=== PATIENT | male | born 1975 | race African-American/Black ===

== ENCOUNTER 2018-08-15 11:09 | Emergency (ER) | payer SELFPAY ==
[~2018-08-15] VITALS: Ht 180.3 cm; Wt 90.0 kg
[2018-08-15] MEDS ORDERED: TETANUS, DIPHTHERIA, PERTUSSIS VAC/PF 0.5ML (>7YR OLD) IM ONE (11:45)
[2018-08-15] MEDS ORDERED: MIDAZOLAM HCL 2 MG/2 ML VIAL IM ONE (12:00)
[2018-08-15 12:25] LABS: BASOPHILS % 0.6 % (0.0-2.0); EOSINOPHILS % 1.3 % (0.0-5.0); HEMOGLOBIN. 14.8 g/dL (14.0-18.0); LYMPHOCYTES % 9.1 % (20.0-50.0); MEAN CORPUSCULAR HEMOGLOBIN 26.7 pg (28.0-32.0); MEAN CORPUSCULAR VOLUME 79.6 fL (80.0-94.0); MEAN PLATELET VOLUME 8.1 fl (7.4-10.4); MONOCYTES % 11.6 % (2.0-8.0); NEUTROPHILS % 77.4 % (40.0-76.0); PLATELET 246 x1000/uL (130-400); RED BLOOD CELL COUNT 5.53 mill/uL (4.7-6.1); RED CELL DISTRIBUTION WIDTH 14.4 % (11.6-14.6)
[2018-08-15 12:32] LABS: CHLORIDE 101 mEq/L (98-107)
[2018-08-15 12:39] LABS: ETHANOL BLOOD < 10 mg/dL
[2018-08-15] MEDS ORDERED: CEFAZOLIN 1000MG PREMIX 50 ML IV ONE (13:30)
[2018-08-15 14:27] VITALS: BP 128/82
== END 2018-08-15 15:25 | disposition short-term general hospital (02) ==
LOC: ER 11:13
DX: F16.10 Hallucinogen abuse, uncomplicated (principal); F12.10 Cannabis abuse, uncomplicated; G93.49 Other encephalopathy; S80.212A Abrasion, left knee, initial encounter; S80.211A Abrasion, right knee, initial encounter; S50.811A Abrasion of right forearm, initial encounter; F91.8 Other conduct disorders; Y35.893A Legal intervention involving other specified means, suspect injured, initial encounter; Y93.89 Activity, other specified; Y92.096 Garden or yard of other non-institutional residence as the place of occurrence of the external cause; Z23 Encounter for immunization
CPT/HCPCS: 36415; 70450; 73090; 73200; 80053; 85025; 90471; 90715; 96365; 96372; 99285; G0482; J0690; J2250

== ENCOUNTER 2025-02-24 01:33 | Emergency (ER) | payer MEDICAID ==
[~2025-02-24] VITALS: Ht 182.9 cm; Wt 91.0 kg
[2025-02-24] MEDS ORDERED: OLANZAPINE 10 MG/VIAL IM STA (01:42)
[2025-02-24 01:49] VITALS: TEMP 36.8
[2025-02-24] MEDS: SODIUM CHLORIDE 0.9% 1,000 ML IV ONE (02:07)
[2025-02-24 02:08] LABS: BASOPHILS % 0.3 % (0.0-2.0); EOSINOPHILS % 0.3 % (0.0-5.0); HEMATOCRIT. 40.6 % (42.0-52.0); HEMOGLOBIN. 13.5 g/dL (14.0-18.0); LYMPHOCYTES % 7.4 % (20.0-50.0); MEAN CORPUSCULAR HEMOGLOBIN 27.5 pg (28.0-32.0); MEAN CORPUSCULAR HGB CONC 33.2 g/dL (31.0-37.0); MEAN CORPUSCULAR VOLUME 82.6 fL (80.0-94.0); MEAN PLATELET VOLUME 8.7 fl (7.4-10.4); MONOCYTES % 8.9 % (2.0-8.0); NEUTROPHILS % 83.1 % (40.0-76.0); PLATELET 212 x1000/uL (130-400); RED BLOOD CELL COUNT 4.92 mill/uL (4.7-6.1); RED CELL DISTRIBUTION WIDTH 13.6 % (11.6-14.6); WHITE BLOOD COUNT 11.4 x1000/uL (4.5-11.0)
[2025-02-24] MEDS: OLANZAPINE 10 MG/VIAL IM NR (02:17)
[2025-02-24] MEDS: HALOPERIDOL LACTATE 5MG/ML VIAL IM ONE (02:18)
[2025-02-24] MEDS: TETANUS, DIPHTHERIA, PERTUSSIS VAC/PF 0.5ML (>10YR OLD) IM ONE (02:24)
[2025-02-24 02:26] LABS: CARBON DIOXIDE 19 mEq/L (21-32); CHLORIDE 105 mEq/L (98-107); POTASSIUM 3.8 mEq/L (3.5-5.1); SODIUM 137 mEq/L (136-145)
[2025-02-24 02:27] LABS: CALCIUM 9.3 mg/dL (8.7-10.4)
[2025-02-24 02:32] LABS: CREATININE 1.5 mg/dL (0.6-1.3); ETHANOL BLOOD < 10 mg/dL (<10); GLUCOSE 123 mg/dL (70-105); UREA NITROGEN BLOOD 20 mg/dL (9-23)
[2025-02-24 02:33] LABS: ACETAMINOPHEN < 2 ug/mL (10-30); AMMONIA < 17 uMol/L (<32)
[2025-02-24 02:34] LABS: CREATINE KINASE 696 IU/L (46-171)
[2025-02-24 03:57] LABS: *AMPHETAMINES SCREEN URINE NEGATIVE (NEGATIVE)
[2025-02-24 03:58] LABS: *BARBITURATES SCREEN URINE NEGATIVE (NEGATIVE); *BENZODIAZEPINES SCREEN URINE NEGATIVE (NEGATIVE); *COCAINE SCREEN URINE NEGATIVE (NEGATIVE); CANNABINOID URINE SCREEN PRESUMPTIVE POSITIVE (NEGATIVE); ECSTASY MDMA SCREEN URINE NEGATIVE (NEGATIVE); METHADONE URINE SCREEN NEGATIVE (NEGATIVE); OPIATES URINE SCREEN NEGATIVE (NEGATIVE); PHENCYCLIDINE URINE SCREEN PRESUMTIVE POSITIVE (NEGATIVE)
[2025-02-24 03:59] LABS: CLARITY URINE CLEAR (CLEAR); COLOR URINE YELLOW (YELLOW); GLUCOSE URINE NEGATIVE (NEGATIVE); KETONES URINE NEGATIVE (NEGATIVE); LEUKOCYTE ESTERASE URINE NEGATIVE (NEGATIVE); NITRITE URINE NEGATIVE (NEGATIVE); OCCULT BLOOD URINE NEGATIVE (NEGATIVE); PROTEIN URINE NEGATIVE (NEGATIVE); SPECIFIC GRAVITY URINE 1.009 (1.005-1.030); UROBILINOGEN URINE 0.2 E.U./dL (0.2-1.0)
[2025-02-24] MEDS ORDERED: IBUP-2029 MT (04:01)
[2025-02-24] MEDS ORDERED: AMOX1TAB16 MT (04:01)
[2025-02-24] MEDS ORDERED: OXYM30SP26 BOTHNSTRLS (04:01)
[2025-02-24 04:11] VITALS: O2SAT 99
[2025-02-24 04:18] VITALS: BP 125/56; PULSE 72; RESP 15; O2SAT 99
== END 2025-02-24 04:35 | disposition home or self-care (01) ==
LOC: ER 01:33
DX: S02.32XA Fracture of orbital floor, left side, initial encounter for closed fracture (principal); S01.81XA Laceration without foreign body of other part of head, initial encounter; F12.10 Cannabis abuse, uncomplicated; F16.10 Hallucinogen abuse, uncomplicated; Z98.890 Other specified postprocedural states; X58.XXXA Exposure to other specified factors, initial encounter; Y93.89 Activity, other specified; Y92.89 Other specified places as the place of occurrence of the external cause; Y99.8 Other external cause status
CPT/HCPCS: 80305; 80048; 81003; 80307; 80329; 80320; 82140; 82550; 82962; 85025; 36415; 70450; 70486; 90715; 12011; 90471; 96360; 96372; 99285; J3490; J1630; J7030; Z7610; G0480